=== PATIENT | male | born 1950 | race Asian ===

== ENCOUNTER 2017-08-27 13:37 | Outpatient (CLI) | payer MEDICARE, OTHER | END 2017-08-27 13:38 | disposition home or self-care (01) | LOC: ULT 13:37 | PROVIDERS: ATTEND Family Medicine | DX: R06.09 Other forms of dyspnea (principal); I07.1 Rheumatic tricuspid insufficiency; I37.1 Nonrheumatic pulmonary valve insufficiency | CPT/HCPCS: 93306 ==

== ENCOUNTER 2020-01-20 12:33 | Outpatient (CLI) | payer MEDICARE, OTHER ==
--- NOTE | 2020-01-20 15:03 | MRI ---
MRI of thecervical spine: 01/20/2020 COMPARISON:None available HISTORY:Cervical radiculopathy TECHNIQUE: Multiplanar multisequence MR imaging of thecervical spine without contrast Findings:The sagittal STIR imaging demonstrates no focal area of osseous marrow edema. There is moder ate degenerative change at the atlantoaxial interspace. C2-3: Mild left facet hypertrophy. No central canal or neural foraminal stenosis. C3-4: Mild disc bulge with mild central canal stenosis. Bilateral facet and uncovertebral osteophyte formation, right greater than left. Mild bilateral neural foraminal stenosis, right greater than left. There is a small central disc protrusion. C4-5: There is disc space narrowing with disc desiccation and a small central disc protrusion causing mild central canal stenosis. No significant neural foraminal stenosis. C5-6: There is disc space narrowing with disc desiccation. Facet and uncovertebral osteophyte formati on on the left leads to moderate/severe left neural foraminal stenosis. No significant central canal or right neural foraminal stenosis. C6-7: Disc space narrowing and disc desiccation present. Bilateral facet and uncovertebral osteophyte formation with moderate left and mild right neural foraminal stenosis. No significant central canal stenosis. C7-T1: There is disc space narrowing with disc desiccation. There is a small disc herniation in the r ight paracentral region leading to a mild degree of right neural foraminal stenosis. No significant central canal or left neural foraminal stenosis. No focal area of abnormal signal intensity identified within the cervical cord. Incidental note is made of significant nonspecific volume loss involving the brainstem/jaci and cereb ellum. IMPRESSION:Cervical spine degenerative change as detailed above. Incompletely assessed nonspecific volume loss involving the brainstem and cerebellum.
--- NOTE | 2020-01-21 09:30 | MRI ---
MRI OF THE RIGHT SHOULDER WITHOUT CONTRAST: INDICATION: History of right shoulder pain. TECHNIQUE: Multiplanar, multisequence MR images were obtained of the right shoulder without IV contrast. Patien t had significant motion artifact that heavily limits image detail on exam. FINDINGS: There is susceptibility artifact within the deltoid musculature which is not specific but likely post surgical. There is mild acromioclavicular joint osteoarthrosis. No muscular atrophy is present. T here is a partial-thickness articular surface tear that is high-grade involving the posterior suprasp inatus at the footprint measuring 1.4 x 0.7 cm on image 21 of series 5 and image 12 of series 9. A m ild amount of fluid is seen within the subacromial subdeltoid space. The biceps tendon is located. Glenohumeral articular surface appears within normal limits. There is a small partial thickness tear involving the posterior and posterior inferior glenoid labrum seen on image 24 through 27 of series 3. IMPRESSION: 1. High-grade partial-thickness articular surface tear of the posterior supraspinatus at the footpri nt. 2. Posterior and posterior inferior glenoid labral tear. 3. Mild acromioclavicular joint osteoarthrosis. 4. Some limitation of the exam as above. POS: [facility]
== END 2020-01-20 12:34 | disposition home or self-care (01) ==
LOC: SCSMRI 12:33
PROVIDERS: ATTEND Family Medicine
DX: M47.22 Other spondylosis with radiculopathy, cervical region (principal); M25.511 Pain in right shoulder; G31.89 Other specified degenerative diseases of nervous system; M19.011 Primary osteoarthritis, right shoulder; M75.111 Incomplete rotator cuff tear or rupture of right shoulder, not specified as traumatic; S43.491A Other sprain of right shoulder joint, initial encounter
CPT/HCPCS: 72141

== ENCOUNTER 2022-01-19 10:44 | Outpatient (CLI) | payer MEDICARE | END 2022-01-19 10:45 | disposition home or self-care (01) | LOC: RAD 10:44 | PROVIDERS: ATTEND Family Medicine | DX: R13.10 Dysphagia, unspecified (principal); R05.9 Cough, unspecified | CPT/HCPCS: 74230 ==

== ENCOUNTER 2023-03-27 07:23 | Outpatient (CLI) | payer MEDICARE, OTHER | END 2023-03-27 07:24 | disposition home or self-care (01) | LOC: RAD 07:23 | PROVIDERS: ATTEND Surgery | DX: K81.9 Cholecystitis, unspecified (principal) | CPT/HCPCS: 76000 ==

== ENCOUNTER 2023-04-26 09:37 | Outpatient (CLI) | payer MEDICARE | END 2023-04-26 09:38 | disposition home or self-care (01) | LOC: RAD 09:37 | PROVIDERS: ATTEND Surgery | DX: K81.9 Cholecystitis, unspecified (principal) | CPT/HCPCS: 47531; 47535; 75984 ==

== ENCOUNTER 2023-11-02 21:23 | Emergency (ER) | payer MEDICARE, OTHER ==
[2023-11-02 21:55] LABS: #Basophils 0.04 10x3/uL (0.0-0.2); %Basophils 0.8 % (0.0-1.0); %Eosinophils 1.6 % (0.0-10.0); %Lymphocytes 19.3 % (21.0-51.0); %Monocytes 8.3 % (0.0-10.0); %Neutrophils 69.8 % (42.0-75.0); Hematocrit 41.5 % (42.0-52.0); Hemoglobin 13.8 g/dL (14.0-18.0); Mean Corpuscular HGB CONC 33.3 g/dL (32.0-36.0); Mean Corpuscular Hemoglobin 30.7 pg (27.0-31.0); Mean Corpuscular Volume 92.4 fL (78.0-98.0); Mean Platelet Volume 9.3 fL (7.4-10.4); Platelet Count 214 10x3/uL (130-400); RBC Distribution Width 13.3 % (11.5-14.5); Red Blood Cell (RBC) Count 4.49 mill/uL (4.70-6.10)
[2023-11-02 22:15] LABS: ALT (SGPT) 10 U/L (8-55); AST (SGOT) 16 U/L (5-34); Alkaline Phosphatase 124 U/L (40-110); Anion Gap 15 mmol/L (10-20); BUN (Urea Nitrogen) 22 mg/dL (8.4-25.7); Calc. Creatinine Clearance 0 mL/min (70-130); Calcium 9.3 mg/dL (7.8-10.44); Carbon Dioxide 25 mmol/L (23-31); Chloride 109 mmol/L (98-107); Estimated GFR 59; Globulin 3.2 g/dL (2.4-3.5); Glucose 91 mg/dL (83-110); Lipase 35 U/L (8-78); Potassium 4.2 mmol/L (3.5-5.1); Protein, Total 7.2 g/dL (5.8-8.1); Sodium 145 mmol/L (136-145)
[2023-11-02 22:27] LABS: Troponin I Less than 0.010 ng/mL (< 0.028)
[2023-11-03 00:48] LABS: Troponin I Less than 0.010 ng/mL (< 0.028)
== END 2023-11-03 01:29 | disposition home or self-care (01) ==
LOC: ERS 21:23
DX: R07.89 Other chest pain (principal); I10 Essential (primary) hypertension; G20.A1 Parkinson's disease without dyskinesia, without mention of fluctuations; G35 Multiple sclerosis; Z79.899 Other long term (current) drug therapy; Z55.6 Problems related to health literacy; Z91.89 Other specified personal risk factors, not elsewhere classified
CPT/HCPCS: 36415; 71045; 80053; 83690; 84484; 85025; 93005; 94760

== ENCOUNTER 2023-12-20 08:05 | Outpatient (CLI) | payer MEDICARE, OTHER ==
[2023-12-20] MEDS ORDERED: Iopamidol 100 ML FS ONE (08:38)
[2023-12-20] MEDS ORDERED: cefOXitin 2 GM in Sodium Chloride 0.9% 100 ML IVPB SCH (09:30)
[2023-12-20] MEDS ORDERED: Sodium Chloride 0.9% 500 ML ONE (09:30)
[2023-12-20] MEDS ORDERED: Lidocaine 1% PF 5 ML VIAL ONE (09:41)
[2023-12-20] MEDS ORDERED: Sodium Bicarbonate 2.5 MEQ/5 ML SDV ONE (09:41)
== END 2023-12-20 08:06 | disposition home or self-care (01) ==
LOC: RAD 08:05
PROVIDERS: ATTEND Surgery
DX: K81.9 Cholecystitis, unspecified (principal); Z90.49 Acquired absence of other specified parts of digestive tract
CPT/HCPCS: 47536; C1769; J0694; J7030; Q9967

== ENCOUNTER 2024-01-14 07:23 | Day surgery (SDC) | payer MEDICARE, OTHER ==
[2024-01-14 07:49] LABS: #Basophils Less than 0.03 10x3/uL (0.0-0.2); %Basophils 0.2 % (0.0-1.0); %Eosinophils 4.3 % (0.0-10.0); %Lymphocytes 25.2 % (21.0-51.0); %Monocytes 8.5 % (0.0-10.0); %Neutrophils 61.6 % (42.0-75.0); Hematocrit 41.3 % (42.0-52.0); Hemoglobin 13.4 g/dL (14.0-18.0); Mean Corpuscular HGB CONC 32.4 g/dL (32.0-36.0); Mean Corpuscular Hemoglobin 30.7 pg (27.0-31.0); Mean Corpuscular Volume 94.7 fL (78.0-98.0); Mean Platelet Volume 8.8 fL (7.4-10.4); Platelet Count 214 10x3/uL (130-400); RBC Distribution Width 13.5 % (11.5-14.5); Red Blood Cell (RBC) Count 4.36 mill/uL (4.70-6.10)
[2024-01-14] MEDS ORDERED: cefOXitin 2 GM in Sodium Chloride 0.9% 100 ML IVPB SCH (08:15)
[2024-01-14] MEDS ORDERED: Lidocaine 1% PF 5 ML VIAL ONE (08:29)
[2024-01-14] MEDS ORDERED: Sodium Bicarbonate 2.5 MEQ/5 ML SDV ONE (08:29)
[2024-01-14] MEDS ORDERED: Sodium Chloride 0.9% 500 ML ONE (08:29)
[2024-01-14] MEDS ORDERED: Iopamidol 100 ML FS ONE (08:29)
[2024-01-14 08:54] LABS: Prothrombin Time 13.1 sec (12.0-14.7)
[2024-01-14 08:55] LABS: PTT 37.2 sec (22.9-36.1)
== END 2024-01-14 10:20 | disposition home or self-care (01) ==
LOC: SPEC 07:23
PROVIDERS: ATTEND Surgery
PROC: 0F9430Z Drainage of Gallbladder with Drainage Device, Percutaneous Approach (ICD-10-PCS; principal; 2024-01-14)
DX: K80.70 Calculus of gallbladder and bile duct without cholecystitis without obstruction (principal)
CPT/HCPCS: 47536; 85025; 85610; 85730; C1729; C1769 ×2; J0694; J7030; Q9967

== ENCOUNTER 2024-02-04 08:31 | Outpatient (CLI) | payer MEDICARE, OTHER | END 2024-02-04 08:32 | disposition home or self-care (01) | LOC: RAD 08:31 | PROVIDERS: ATTEND Internal Medicine Critical Care Medicine | DX: R06.00 Dyspnea, unspecified (principal) | CPT/HCPCS: 71046 ==

== ENCOUNTER 2024-03-11 10:06 | Outpatient (CLI) | payer MEDICARE, OTHER ==
[2024-03-11] MEDS ORDERED: cefOXitin 2 GM in Sodium Chloride 0.9% 100 ML IVPB SCH (11:15)
[2024-03-11] MEDS ORDERED: Lidocaine 1% w/Epinephrine 1:100K 20 ML VIAL ONE (11:42)
[2024-03-11] MEDS ORDERED: Sodium Chloride 0.9% 500 ML ONE (11:43)
[2024-03-11] MEDS ORDERED: Iopamidol 0 ML FS ONE (11:43)
[2024-03-11] MEDS ORDERED: Sodium Bicarbonate 2.5 MEQ/5 ML SDV ONE (11:43)
[2024-03-11] MEDS ORDERED: Iopamidol 100 ML FS ONE (11:44)
== END 2024-03-11 10:07 | disposition home or self-care (01) ==
LOC: RAD 10:06
PROVIDERS: ATTEND Surgery
DX: K81.9 Cholecystitis, unspecified (principal); K80.50 Calculus of bile duct without cholangitis or cholecystitis without obstruction
CPT/HCPCS: 47531; C1729; C1769 ×2; J0694; J7030; Q9967

== ENCOUNTER 2024-05-28 09:12 | Day surgery (SDC) | payer MEDICARE, OTHER ==
[2024-05-28] MEDS ORDERED: cefOXitin 2 GM in Sodium Chloride 0.9% 100 ML IVPB SCH (09:45)
[2024-05-28] MEDS ORDERED: Sodium Bicarbonate 2.5 MEQ/5 ML SDV ONE (10:45)
[2024-05-28] MEDS ORDERED: Lidocaine 1% w/Epinephrine 1:100K 20 ML VIAL ONE (10:45)
[2024-05-28] MEDS ORDERED: Iopamidol 30 ML ONE (10:45)
[2024-05-28] MEDS ORDERED: Sodium Chloride 0.9% 500 ML ONE (10:45)
== END 2024-05-28 12:50 | disposition home or self-care (01) ==
LOC: SPEC 09:12
PROVIDERS: ATTEND Surgery
PROC: BF532Z0 Other Imaging of Gallbladder and Bile Ducts using Fluorescing Agent, Intraoperative (ICD-10-PCS; principal; 2024-05-28)
DX: K81.9 Cholecystitis, unspecified (principal)
CPT/HCPCS: 47531; C1729; C1769 ×2; J0694; J7030; Q9967

== ENCOUNTER 2024-06-05 10:38 | Outpatient (CLI) | payer MEDICARE, OTHER ==
[2024-06-05] MEDS ORDERED: cefOXitin 2 GM in Sodium Chloride 0.9% 100 ML IVPB SCH (11:15)
[2024-06-05] MEDS ORDERED: Lidocaine 1% w/Epinephrine 1:100K 20 ML VIAL ONE (11:25)
[2024-06-05] MEDS ORDERED: Sodium Chloride 0.9% 500 ML ONE (11:25)
[2024-06-05] MEDS ORDERED: Iopamidol 30 ML ONE (11:25)
[2024-06-05] MEDS ORDERED: Sodium Bicarbonate 2.5 MEQ/5 ML SDV ONE (11:25)
== END 2024-06-05 13:40 | disposition home or self-care (01) ==
LOC: RAD 10:38
PROVIDERS: ATTEND Surgery
DX: K81.9 Cholecystitis, unspecified (principal)
CPT/HCPCS: 47531; C1729; C1769 ×3; J0694; J7030; Q9967

== ENCOUNTER 2024-06-09 11:06 | Outpatient (CLI) | payer MEDICARE, OTHER ==
[2024-06-09] MEDS ORDERED: Iopamidol 30 ML ONE (11:24)
[2024-06-09] MEDS ORDERED: Sodium Chloride 0.9% 500 ML ONE (11:24)
[2024-06-09] MEDS ORDERED: Lidocaine 1% PF 5 ML VIAL ONE (11:24)
[2024-06-09] MEDS ORDERED: Sodium Bicarbonate 2.5 MEQ/5 ML SDV ONE (11:24)
[2024-06-09] MEDS ORDERED: cefOXitin 2 GM in Sodium Chloride 0.9% 100 ML IVPB SCH (12:00)
== END 2024-06-09 15:15 | disposition home or self-care (01) ==
LOC: RAD 11:06
PROVIDERS: ATTEND Surgery
DX: K81.9 Cholecystitis, unspecified (principal); K80.80 Other cholelithiasis without obstruction
CPT/HCPCS: 47531; C1729; C1769; J0694; J7030; Q9967

== ENCOUNTER 2025-02-04 10:14 | Outpatient (CLI) | payer MEDICARE, OTHER ==
[2025-02-04] MEDS ORDERED: Sodium Bicarbonate 2.5 MEQ/5 ML SDV ONE (11:25)
[2025-02-04] MEDS ORDERED: Iopamidol 100 ML FS ONE (11:26)
== END 2025-02-04 10:15 | disposition home or self-care (01) ==
LOC: RAD 10:14
PROVIDERS: ATTEND Surgery
PROC: 0F24X0Z Change Drainage Device in Gallbladder, External Approach (ICD-10-PCS; principal; 2025-02-04)
DX: K81.9 Cholecystitis, unspecified (principal)
CPT/HCPCS: 36000; 47531; C1729; C1769 ×2; J0694; J7030; Q9967

== ENCOUNTER 2025-05-11 09:16 | Outpatient (CLI) | payer MEDICARE, OTHER ==
[2025-05-11] MEDS ORDERED: Sodium Bicarbonate 2.5 MEQ/5 ML SDV ONE (10:02)
[2025-05-11 12:20] VITALS: BP 150/92; TEMP 97.2
== END 2025-05-11 12:05 | disposition home or self-care (01) ==
LOC: RAD 09:16
PROVIDERS: ATTEND Surgery
DX: K80.50 Calculus of bile duct without cholangitis or cholecystitis without obstruction (principal)
CPT/HCPCS: 36000; 47531; A4456; C1729; C1769 ×2; J0694; Q9967